=== PATIENT | male | born 1980 | race Caucasian/White ===

== ENCOUNTER 2023-01-11 18:56 | Emergency (ER) | payer BC, SELFPAY ==
[2023-01-11 19:00] VITALS: BP 145/87; PULSE 92; RESP 18; TEMP 36.9; O2SAT 96; BMI 36.5
--- NOTE | 2023-01-11 19:06 | ED.WOUNDLAC ---
HPI - Wound/Laceration General Time Seen by Provider: 19:06 Date Seen: 01/11/23 Chief Complaint: Laceration/Wound Stated Complaint: Lac on left hand Time Seen by Provider: 01/11/23 18:58 Source: patient and RN notes reviewed Mode of arrival: ambulatory Limitations: no limitations History of Present Illness HPI narrative: Patient is a 42-year-old male that sustained a puncture wound in his left thenar eminence. He was using a tool to thread a plug into a tire and did accidentally went through his thenar eminence. He was not even aware that it had fully punctured. He only noted that when he withdrew it and saw an entrance and exit portal. He did clean it with water and peroxide. There is some discrepancy with his tetanus. He has a picture on his clinic chart that was sent by his showing his last tetanus was 09/07/2008. On the [place] immunization website they do have 08/02/2017. He does not remember his last tetanus. Given that this was a puncture wound, his last tetanus was at least 5 years, we have discussed and decided to update his tetanus. There is minimal risk in doing this. He denies any numbness tingling. He is leaving for the weekend and thus decided to have this evaluated. Related Data Home Medications Medication Instructions Recorded Confirmed No Known Home Medications 02/15/22 02/15/22 Allergies Allergy/AdvReac Type Severity Reaction Status Date / Time cephalexin Allergy Unknown Verified 01/11/23 19:00 Sulfa (Sulfonamide Allergy Unknown Verified 01/11/23 19:00 Antibiotics) Review of Systems Narrative: As per HPI PFSH PFSH Social History Smoking Status: Former smoker Exam Const: Vital Signs, click to edit/add: Vital Signs - 24 hr 01/11/23 19:00 Temperature 98.4 F Pulse Rate [Right Pulse Oximeter] 92 Respiratory Rate 18 Blood Pressure [Ri ght Upper Arm] 145/87 H Pulse Oximetry 96 Oxygen Delivery Me thod Room Air Documenting provider has reviewed patient's vital signs: yes Other: Patient is a 42-year-old male ambulatory in the ED of his own accord. On inspection of his thenar eminence, you can see the entrance along the lateral thenar eminence and a smaller exit medially. It is in the fleshy part of the thenar eminence. He has full range of motion of the thumb, no loss of sensation, no loss of strength in any ranges of motion of the thumb. There is no active bleeding, no significant swelling. The wounds of the entrance and exit are already ceiling over and forming clots/scabs. Course Course Hospital Course: Reviewed with patient that this tract is already ceiling and he did note that it did bleed. We did discuss the possibility of infection as a complication of this wound. Would be extremely difficult to adequately irrigate this and potential for actually placing bacteria into the soft tissues. Will have him watch the wound closely. I will send a prescription for doxycycline 100 mg p.o. b.i.d. x7 days to be used if he should develop infection. We will update his tetanus. Vital Signs Vital signs: Initial Vital Signs Temperature 98.4 F 01/11/23 19:00 Temperature Source Temporal Artery Scan 01/11/23 19:00 Pulse Rate 92 01/11/23 19:00 Pulse Rhythm Regular 01/11/23 19:00 Pulse Strength 3+ Normal 01/11/23 19:00 Respiratory Rate 18 01/11/23 19:00 Blood Pressure 145/87 H 01/11/23 19:00 Blood Pressure Mean 106 H 01/11/23 19:00 Blood Pressure Position Sitting 01/11/23 19:00 Pulse Oximetry 96 01/11/23 19:00 Oxygen Delivery Method Room Air 01/11/23 19:00 Vital Signs Temperature 98.4 F 01/11/23 19:00 Pulse Rate 92 01/11/23 19:00 Respiratory Rate 18 01/11/23 19:00 Blood Pressure 145/87 H 01/11/23 19:00 Pulse Oximetry 96 01/11/23 19:00 Oxygen Delivery Method Room Air 01/11/23 19:00 Temperature 98.4 F 01/11/23 19:00 Pulse Rate 92 01/11/23 19:00 Respiratory Rate 18 01/11/23 19:00 Blood Pressure 145/87 H 01/11/23 19:00 Pulse Oximetry 96 01/11/23 19:00 Oxygen Delivery Method Room Air 01/11/23 19:00 Discharge Plan Discharge Clinical Impression: Puncture wound Patient Disposition: Home, Self-Care Condition: Stable Instructions: Puncture Wound (ED) Additional Instructions: Your tetanus was updated with a Tdap today. I a.m. sending a prescription for antibiotics to be started should you notice increasing swelling, redness, pain or fevers associated with these symptoms. If there is concern for infection, do recommend starting antibiotic as well as having the wound evaluated again. Your fine to use Tylenol and/or ibuprofen as needed for pain control. Would recommend ice and elevation tonight and potentially tomorrow to help decrease pain and swelling. Keep the wound openings covered to keep them clean and dry until this is completely healed. Activity Level: Activity as Tolerated Prescriptions: No Action No Known Home Medications Follow Up/Referrals: Provider,Not a Local [Primary Care Provider] - Stand Alone Forms: [employer] Info Instructions
[2023-01-11] MEDS: TETANUS/DIPHTH/PERTUSSIS 0.5 ML SYRINGE IM (19:24)
--- NOTE | 2023-01-11 19:35 | PC.NURSE ---
wound washed with soap and water, bandaged applied, DC instruction gone over with patient and no further questions.
== END 2023-01-11 19:36 | disposition home or self-care (01) ==
PROVIDERS: Emergency Provider Family Medicine
DX: S61.432A Puncture wound without foreign body of left hand, initial encounter (principal)
CPT/HCPCS: 90471; 90715; 99282; 99283; 99284

== ENCOUNTER 2025-02-05 10:52 | Emergency (ER) | payer BC, SELFPAY ==
--- OUTSIDE RECORDS SUMMARY | 2025-02-05 10:53 | XMS_ITS | Clinical Summary ---
Author Organization [employer] [facility] Address [address] [place] [address] Care Team Providers Care Documentation Improvement Specialist Name Role Phone Isidro Camejo MD Primary Care Provider [phone] Allergies Active Allergy Reactions Criticality Noted Date Comments Cephalexin Rash Low 04/01/2009 on both arms, was taking other meds at the time and continued to take medication without worsening of rash. Sulfa (Sulfonamide Antibiotics) *Unknown - Childhood Rxn 09/07/2008 Medications mometasone (Nasonex) (50 mcg each actuation) nasal sprayIndication s:Seasonal allergies Inhale 1 [place] to both nostrils once daily. As needed for allergy symptoms. 17 g 4 2 Active fexofenadine (NAYAN) 180 mg tabletIndicatio ns:Seasonal allergies Take 180 mg by mouth once daily with a meal. As needed daily for allergies in Summer/fall. 90 tablet. 2 2 Active amitriptyline (ELAVIL) 25 mg tabletIndicatio ns:Temporal headache Take 1 Tablet (25 mg) by mouth at bedtime. 90 Tablet 3 4 Active desoximetasone (TOPICORT) 0.25 % ointmentIndicat ions:Other eczema APPLY TOPICALLY TO AFFECTED AREA(S) TWICE DAILY only as needed. 30 g 1 4 Active Active Problems Problem Noted Date Diagnosed Date Alopecia 11/29/2024 Temporal headache 08/08/2022 Overview (06/18/2024): Started June 2022. July 2022: started on imitrex. October 2022: amitriptyline 25mg. December 2023: did increase the amitriptyline from 25-50mg. May 2024: decreased amitriptyline from 50mg down to 25mg per Patient MyChart Message request, due to tired symptoms and weight gain. 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 Neg CT Angiogram. Dermatitis of foot 10/06/2013 Overview (10/06/2013): Saw 2010. on steroid cream. Obesity 11/18/2009 Resolved Problems Problem Noted Date Diagnosed Date Resolved Date Acute anterior uveitis-bilateral 11/21/2009 11/10/2018 Encounters Date Type Department Care Team Description 02/04/2025 8:45 AM CDT Office Visit [facility] [address] [place] [address] Kerry Suazo MD Heart Problem (Patient states he has been having what feels like heart burn since Wednesday 01/31. Patient states it has gotten a little bit better this morning.) 02/04/2025 Travel 12/11/2024 9:15 AM CDT Orders Only [facility] [address] [place] [address] Lab, [facility] 12/11/2024 Travel 11/27/2024 7:50 AM CDT Office Visit [facility] [address] [place] [address] Isidro Camejo MD Concerns (2 bare spots on back of head and 1 bare spot in leal) 11/27/2024 Travel 11/25/2024 1:15 PM CDT Orders Only [facility] [address] [facility] [place] [address] Lab, [place] [facility] 11/25/2024 Travel from Last 3 Months Immunizations Immunization Administration Dates Next Due AMB Influenza, IIV3 (Age >=3 years)(Flu Clinic Only) 05/04/2010 DTP 09/05/1987, 5,02/15/1983,1982,1982 HIB PRP-T (ActHIB,Hiberix) 08/28/1985 Hepatitis B (Peds) 04/08/1995,10/30/1994, 995 Influenza A (H1N1), Inactiva macie (Age >=3 Years) 06/05/2017 Influenza, IIV4 05/29/2020,05/18/2014 MMR 09/27/1994,11/21/1983 Oral Polio Vaccine 09/05/1987, 5,1982,1982 Td (Age >=7 Years) 01/16/1995 Td, Preservative Free (age > = 7 Years) 08/02/2017 Tdap 01/11/2023,09/07/2008,03/04/2006 Tuberculin (PPD) 11/21/2009 Family History Medical History Relation Name Comments Good Health Brother Good Health Father Cancer Maternal Grandfather skin Diabetes Maternal Grandfather Cancer Maternal Grandmother skin Good Health Mother Relation Name Status Comments Brother Father Maternal Grandfather Maternal Grandmother Mother Paternal Grandfather (Age 72) CA D, colon cancer Paternal Grandmother (Age 94) CV A Social History Tobacco Use Types Packs/Day Years Used Date Smoking Tobacco: Former Cigarettes 1 5 0 01/02/2004 - 01/01/2009 Passive Smoke Exposure: Never Smokeless Tobacco: Never Tobacco Cessation:Counseling Given: Yes Comments:1 pack per week Alcohol Use Standard Drinks/Week Comments Yes 0 (1 standard drink = 0.6 oz pur e alcohol) 2020 : rarely PHQ-2 Answer Date Recorded PHQ-2 TOTAL SCORE 0 06/18/2024 Social Connections Answer Date Recorded Do you often feel lonely or isolated from those around you? 0 02/04/2025 Financial Resource Strain Answer Date R ecorded Difficulty of Paying Living Expenses 3 02/04/2025 Difficulty of Paying Living Expenses Not on file 02/04/2025 Food Insecurity Answer Date Recorded Do you worry your food will run out before you are able to buy more? 1 02/04/2025 Transportation Needs Answer Date Record ed Does lack of transportation keep you from medica l appointments? 1 02/04/2025 Does lack of transportation keep you from work, meetings or getting things that you need? 1 02/04/2025 Housing Stability Answer Date Recorded What is your housing situation today? 1 02/04/2025 Utilities Answer Date Recorded Do you have trouble paying f or utilities (for example, heat, electricity, water, phone)? 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 Not on file Not on file Not on file Obstetrics History Last Filed Vital Signs Vital Sign Reading Time Taken Comments Blood Pressure 123/84 02/04/2025 8:45 AM CDT Pulse 76 02/04/2025 8:45 AM CDT Temperature 37.3 C (99.1 F) 09/30/2017 8:04 AM CDT Respiratory Rate 16 01/14/2014 8:20 AM CDT Oxygen Saturation 97% 02/04/2025 8:45 AM CDT Inhaled Oxygen Concentration - - Weight 144.2 kg (318 lb) 02/04/2025 8:45 AM CDT Height 192.8 cm (6' 3.91) 11/27/2024 7:53 AM CD T Body Mass Index 38.8 11/27/2024 7:53 AM CDT Plan of Treatment Upcoming Encounters Date Type Department Care Team (Late st Contact Info) Description 02/08/2025 1:00 PM CDT Ancillary Procedure [facility] [address] [facility] [address] [place] [address] 02/15/2025 8:25 AM CDT Office Visit [facility] [address] [facility] [address] [place] [address] [place] [address] [place] [address] Health Maintenance Due Date Last Done Comments COVID-19 vaccine series ( season) 2024 09/26/2020 Influenza Vaccine (#1) 2025 , 05/18/2014, 05/04/2010 Depression screening for age 12+ 06/18/2025 06/18/2024 BMI (ht and wt on same day) for age 18+ 11/27/2025 11/27/2024, 06/18/2024, 09/16/2023, Additional history exists Lipids for age 35-44 10/01/2028 10/02/2023, 10/16/2022, 10/06/2021, Additional history exists Tetanus booster 01/11/2033 01/11/2023, 07/15, 09/07/2008, Additional history exists Hepatitis B series for 19+ Completed 04/08, 10/30/1994, 09/27/1994 HIV for age 15-65 Completed 10/22/2022 Hepatitis C screening for age 18-79 Completed 10/22/2022 Pneumococcal series for age 6-49 Aged Out No longer eligible based on patient's age to complete this topic Procedures Procedure Name Priority Date/Time Associated Diagnosis Comments TESTOSTERONE BIOAVAILABLE & FREE Routine 12/11/2024 9:18 AM CDT Alopecia Low testosterone in male TSH Routine 11/25/2024 1:15 PM CDT Alopecia CBC WITH AUTO DIFFERENTIAL Routine 11/25/2024 1:15 PM CDT Alopecia T4,FREE Routine 11/25/2024 1:15 PM CDT Alopecia TESTOSTERONE,TOTAL Routine 11/25/2024 1: 15 PM CDT Alopecia LIPID PANEL W REFLEX MEASURED LDL Routine 10/02/2023 7:19 AM CDT Hypertriglyceridemia Screening cholesterol level LC HIV-1/O/2, 4TH GENERATION Routine 10/22/2022 10:02 AM CDT Screening for HIV (human immunodeficiency virus) HCV RNA QUANT Routine 10/22/2022 10:02 AM CDT Encounter for hepatitis C screening test for low risk patient from Last 3 Months or Most Recently Relevant to Health Maintenance Results * (ABNORMAL) TESTOSTERONE BIOAVAILABLE & FREE (12/11/2024 9:18 AM CDT) ALBUMIN 4.6 3.6 - 5.1 g/dL [facility] SEX HORMONE BINDING GLOBULIN 14 10 - 50 nmol/L [facility] TESTOSTERONE, FREE 53.8 46.0 - 224.0 pg/mL [facility] TESTOSTERONE,BIOA VAILABLE 113.0 110.0 - 575.0 ng/dL [facility] TESTOSTERONE, TOTAL, MS 240(L) 250 - 1,100 ng/dL [facility] Comment: Men with clinically significant hypogonadal symptoms and testosterone values repeatedly in the range of the 200-300 ng/dL or less, may benefit from testosterone treatment after adequate risk and benefits counseling. For additional information, please refer to https://education.[employer]faq/KEO442 (This link is being provided for informational/educational purposes only.) (Note) This test was developed and its analytical performance characteristics have been determined by [employer]. It has not been cleared or approved by the FDA. This assay has been validated pursuant to the CLIA regulations and is used for clinical purposes. [facility] [address] [place] [address],[address] [place] [address] Gene Fischer MD, PhD Blood BLOOD SPECIMEN / Unknown 12/11/2024 9:18 AM CDT 12/11/2024 9:18 AM CDT us Isidro Camejo MD SEND OUTS Final Res ult [facility] [address] [place] [phone], [facility] [address] [place] [address], [address] [place] [address] * TSH (11/25/2024 1:15 PM CDT) TSH 1.67 0.40 - 4.50 mIU/L [facility] Blood BLOOD SPECIMEN / Unknown 11/25/2024 1:15 PM CDT 11/25/2024 1:15 PM CDT Isidro Camejo MD CHEMISTRY Final Res ult [employer] [facility] [address] [place] [address], [facility] [address] [place] [address] * CBC AND DIFFERENTIAL (11/25/2024 1:15 PM CDT) Pathologist [facility] WHITE BLOOD CELL COUNT 9.4 3.8 - 10.8 Thousand/u L [facility] RED BLOOD CELL COUNT 5.10 4.20 - 5.80 Million/uL [facility] HEMOGLOBIN 15.2 13.2 - 17.1 g/dL [facility] HEMATOCRIT 46.3 38.5 - 50.0 % [facility] MCV 90.8 80.0 - 100.0 fL [facility] MCH 29.8 27.0 - 33.0 pg [facility] MCHC 32.8 32.0 - 36.0 g/dL [facility] Comment: For adults, a slight decrease in the calculated MCHC value (in the range of 30 to 32 g/dL) is most likely not clinically significant; however, it should be interpreted with caution in correlation with other red cell parameters and the patient's clinical condition. RDW 12.7 11.0 - 15.0 % [facility] PLATELET COUNT 300 140 - 400 Thousand/u L [facility] MPV 9.6 7.5 - 12.5 fL [facility] ABSOLUTE NEUTROPHILS 6,533 1,500 - 7,800 cells/uL [facility] ABSOLUTE LYMPHOCYTES 1,974 850 - 3,900 cells/uL [facility] ABSOLUTE MONOCYTES 639 200 - 950 cells/uL [facility] ABSOLUTE EOSINOPHILS 197 15 - 500 cells/uL [facility] ABSOLUTE BASOPHILS 56 0 - 200 cells/uL [facility] NEUTROPHILS 69.5 % [facility] LYMPHOCYTES 21.0 % [facility] MONOCYTES 6.8 % [facility] EOSINOPHILS 2.1 % [facility] BASOPHILS 0.6 % [facility] Blood BLOOD SPECIMEN / Unknown 11/25/2024 1:15 PM CDT 11/25/2024 1:15 PM CDT Isidro Camejo MD HEMATOLOGY Final Res ult Performing Organization Address City/[facility]/ZIP Co de Phone Number [facility] [employer] ([id number] [facility] [address] [place] [address], [place] [phone] [facility] [address] [place] [address] * T4,FREE (11/25/2024 1:15 PM CDT) T4, FREE 0.9 0.8 - 1.8 ng/dL [facility] Blood BLOOD SPECIMEN / Unknown 11/25/2024 1:15 PM CDT 11/25/2024 1:15 PM CDT us Isidro Camejo MD CHEMISTRY Final Res ult Performing Organization Address [facility]/ZIP Co de Phone Number [employer] [facility] [address] [place] [phone], [place] [phone] [facility] [address] [place] [address] * (ABNORMAL) TESTOSTERONE,TOTAL (11/25/2024 1:15 PM CDT) TESTOSTERONE, TOTAL, MS 232(L) 250 - 1,100 ng/dL [facility] Comment: Men with clinically significant hypogonadal symptoms and testosterone values repeatedly in the range of the 200-300 ng/dL or less, may benefit from testosterone treatment after adequate risk and benefits counseling. For additional information, please refer to https://education.[employer]/faq/TotalTestosteroneLCMSMS (This link is being provided for informational/educational purposes only.) (Note) This test was developed and its analytical performance characteristics have been determined by [employer]. It has not been cleared or approved by the FDA. This assay has been validated pursuant to the CLIA regulations and is used for clinical purposes. [facility] [address] [place] [address],[address] [place] [address] Gene Fischer MD, PhD Blood BLOOD SPECIMEN / Unknown 11/25/2024 1:15 PM CDT 11/25/2024 1:15 PM CDT Isidro Camejo MD CHEMISTRY Final Res ult [facility] [address] [place] [phone], [facility] [address] [place] [address], [address] [place] [phone] * (ABNORMAL) LIPID PANEL W REFLEX MEASURED LDL (10/02/2023 7:19 AM CDT) CHOLESTEROL,TOTAL 164 100 - 199 mg/dL 10/02/2023 2:18 PM CDT [facility] [employer] [facility] Comment: Cholesterol, Total Reference Ranges Desirable <200 mg/dL Borderline 200-239 mg/dL High >=240 mg/dL TRIGLYCERIDES 193(H) <150 mg/dL 10/02/2023 2:18 PM CDT [facility] HDL CHOLESTEROL 31(L) >40 mg/dL 2:[address] [facility] NON-HDL CHOLESTEROL 133 <145 mg/dl 10/02/2023 2:[address] [facility] CHOL/HDL RATIO 5.29(H) <4.50 10/02/2023 2:18 PM CDT [facility] LDL CHOLESTEROL 94 <=130 mg/dL 10/02/2023 2:18 PM CDT [facility] VLDL CHOLESTEROL 39(H) <=30 mg/dL 10/02/2023 2:18 PM CDT [facility] TR[facility] LABORATORY PROVIDER ORDERED STATUS FASTING 10/02/2023 2:18 PM CDT [facility] Blood BLOOD SPECIMEN / Unknown Venipuncture / Unknown 10/02/2023 7:19 AM CDT 10/02/2023 7:19 AM CDT Isidro Camejo MD CHEMISTRY Final Res ult [facility] [address] [place] [address], [place] * LC HIV-1/O/2, 4TH GENERATION (10/22/2022 10:02 AM CDT) Pathologist [facility] HIV Scr 4th Gen Non Reactive Non Reactive 10/24/2022 10:07 PM CDT [facility] Comment: HIV Negative HIV-1/HIV-2 antibodies and HIV-1 p24 antigen were NOT detected. There is no laboratory evidence of HIV infection. Blood BLOOD SPECIMEN / Unknown Venipuncture / Unknown 10/22/2022 10:02 AM CDT 10/22/2022 10:10 AM CDT Narrative [facility] - 10/24/2022 10:07 PM CDT Performed at: [address] [place] [id number] Fall Internship: Baljeet Disla MD, Phone: [phone] Isidro Camejo MD LABORATORY Final Res ult [facility] ([facility]) [address] [place] [address], [place] * HCV RNA QUANT (10/22/2022 10:02 AM CDT) HCV RNA RT-PCR HCV RNA not detected HCV RNA not detected IU/mL 10/26/2022 1:42 PM CDT [facility] [employer] LABORAT[facility]- [facility]ORY Blood BLOOD SPECIMEN / Unknown Venipuncture / Unknown 10/22/2022 10:02 AM CDT 10/22/2022 10:10 AM CDT Narrative [facility] - 10/26/2022 1:42 PM CDT Method: Breann HCV Test us Isidro Camejo MD SEND OUTS Final Res ult [facility] [address] [place] [address], from Last 3 Months or Most Recently Relevant to Health Maintenance Insurance [facility] Advance Directives * Full Code (Latest Code Status on File) Date Activated Date Inactivated Comments 01/14/2014 1:08 AM 01/14/2014 1:44 PM Care Teams Documentation Improvement Specialist Relationship Specialty Start Date End Date Isidro Camejo MD [facility] - General 03/10/09
[2025-02-05 11:11] VITALS: BP 152/84; PULSE 80; RESP 20; TEMP 36.6; O2SAT 98; BMI 38.3
--- NOTE | 2025-02-05 11:27 | CRLHL7_ITS ---
For Patients: As a result of the Century Cures Act, medical imaging exams and procedure reports are released immediately into your electronic medical record. You may view this report before your referring provider. If you have questions, please contact your health care provider. INDICATION: Chest pain TECHNIQUE: Chest 1 views. COMPARISON: None. FINDINGS: Cardiovasculature and mediastinum: Heart size is normal. Unremarkable mediastinum. Lungs and pleural spaces: Lungs are clear. Calcified granuloma in the right lower lobe. No pneumothorax or pleural effusion. Bones and soft tissues: No significant findings. IMPRESSION: No acute findings. Dictated by Kyara Ornelas MD @ 02/05/2025 12:25:53 PM (Electronically Signed)
--- NOTE | 2025-02-05 11:28 | ED_ITS ---
HPI - Chest Pain General Chief Complaint: Chest Pain Stated Complaint: Chest pain Time Seen by Provider: 02/05/25 11:17 History of Present Illness HPI narrative: Patient is a 44-year-old gentleman who had chest pain approximately week ago. He has had intermittent pain over the last week that is primarily left-sided no diaphoresis no shortness of breath. Patient was seen in urgent care and had an EKG which was reassuring. The provider told patient to come to the ER if symptoms persist while we wait for his stress test which is in 3 days. Patient has no history of any cardiovascular disease. No family history of heart disease. He is not noticing aggravating or alleviating factors and otherwise been in his usual state of health. EKG done upon arrival showed normal sinus rhythm no acute ST or T-wave changes. Related Data Home Medications ?Medication ?Instructions ?Recorded ?Confirmed No Known Home Medications 02/15/22 08/0 11/03 Allergies Allergy/AdvReac Type Severity Reaction Status Date / Time cephalexin Allergy Unknown Verified 02/05/25 11:10 Sulfa (Sulfonamide Allergy Unknown Verified 02/05/25 11:10 Antibiotics) Review of Systems Status of ROS Reports: 10 or more systems reviewed and unremarkable except as noted in History and below PFSH PFSH Social History Smoking Status: Former smoker Do you use any of these nicotine containing products: None How often do you have a drink containing alcohol: monthly or less AUDIT-C Alcohol total score: 1 Non-prescribed substance use: denies use Exam Narrative Exam Narrative: EXAM GENERAL: Patient appears comfortable and well. EYES: No scleral icterus. ENT: Tympanic membranes and oropharynx normal. THYROID: no thyroid nodules or thyromegaly. LYMPH: No supraclavicular or cervical lymphadenopathy. SKIN: Visible skin seen during exam normal or with benign process only. EXT: No dependent lower extremity pedal edema. HEART: Regular rate and rhythm with no murmurs, rubs, or gallops. LUNGS: Clear to auscultation bilaterally with no crackles or wheezes. ABD: Soft, non tender, non distended. PSYCH: Good eye contact, speech is not pressured. Const Vital Signs, click to edit/add: Vital Signs - 24 hr 02/05/25 11:11 Temperature 97.8 F Pulse Rate [Pulse Oximeter] 80 Respiratory Rate 20 Blood Pressure [Right Upper Arm] 152/84 H Pulse Oximetry 98 Oxygen Delivery Method Room Air Course Course ED Course: Patient seen examined. EKG personally reviewed. D-dimer troponin CBC comprehensive metabolic panel portable chest x-ray pending. Vital Signs Vital signs: Initial Vital Signs Temperature 97.8 F 02/05/25 11:11 Temperature Source Temporal Artery Scan 02/05/25 11:11 Pulse Rate 80 02/05/25 11:11 Respiratory Rate 20 02/05/25 11:11 Blood Pressure 152/84 H 02/05/25 11:11 Blood Pressure Mean 106 H 02/05/25 11:11 Pulse Oximetry 98 02/05/25 11:11 Oxygen Delivery Method Room Air 02/05/25 11:11 Vital Signs Temperature 97.8 F 02/05/25 11:11 Pulse Rate 80 02/05/25 11:11 Respiratory Rate 20 02/05/25 11:11 Blood Pressure 152/84 H 02/05/25 11:11 Pulse Oximetry 98 02/05/25 11:11 Oxygen Delivery Method Room Air 02/05/25 11:11 Temperature 97.8 F 02/05/25 11:11 Pulse Rate 80 02/05/25 11:11 Respiratory Rate 20 02/05/25 11:11 Blood Pressure 152/84 H 02/05/25 11:11 Pulse Oximetry 98 02/05/25 11:11 Oxygen Delivery Method Room Air 02/05/25 11:11 MDM - Chest Pain MDM Narrative Medical decision making narrative: Patient presents with intermittent chest pain which is been evaluated in the clinic with a negative EKG. Patient has no real increase in his symptoms the last several days. EKG done upon arrival today shows normal sinus rhythm without acute ST or T-wave changes. Patient's chest x-ray is unremarkable D- dimer troponin CBC comprehensive metabolic panel normal. This time I did offer reassurance and he can return if symptoms worsen. He does have a stress test scheduled in 3 days. Lab Data Labs: Lab Results 02/05/25 Range/Units 11:45 WBC 8.94 (4.50-11.00) K/uL RBC 5.32 (4.30-5.90) m/uL Hgb 15.6 (13.5-17.5) gm/dL Hct 46.3 (37.0-53.0) % MCV 87 (80-100) fL MCH 29 (26-34) pg MCHC 34 (32-36) gm/dL RDW Coeff of Laura 11.9 (11.5-15.5) % Plt Count 281 (140-440) K/uL Neut % (Auto) 68.1 (42.0-72.0) % Lymph % (Auto) 19.8 L (20-44) % Dubois % (Auto) 10.0 (0.0-11.0) % Eos % (Auto) 1.3 (0.0-7.0) % Baso % (Auto) 0.6 (0.0-3.0) % Neut # (Auto) 6.09 (1.7-7.0) K/uL Lymph # (Auto) 1.80 (0.90-2.90) K/uL Dubois # (Auto) 0.90 (0.00-0.90) K/UL Eos # (Auto) 0.12 (0.00-0.50) K/uL Baso # (Auto) 0.05 (0.00-0.30) K/uL Abs Immat Gran (auto) 0.02 (0.00-0.30) K/uL Imm/Tot Granulo (auto) 0.2 % D-Dimer Quant (PE/DVT) < 0.27 (0.00-0.50) ug/ml Sodium 137 (135-149) mmol/L Potassium 4.0 (3.6-5.1) mmol/L Chloride 105 (96-114) mmol/L Carbon Dioxide 24 (20-32) mmol/L Anion Gap 8 (7-15) mEq/L BUN 23 (5-24) mg/dL Creatinine 0.8 (0.5-1.5) mg/dL Estimated Creat Clear 147.68 Estimated GFR 113 ml/min Glucose 87 (60-115) mg/dL Calcium 9.5 (8.4-10.6) mg/dL Total Bilirubin 0.5 (0.1-1.5) mg/dL AST 41 H (12-35) U/L ALT 49 (4-50) U/L Alkaline Phosphatase 77 (40-150) U/L Troponin I < 0.01 (0.01-0.04) ng/mL Total Protein 7.8 (6.0-8.3) g/dL Albumin 4.7 (3.3-5.0) g/dL Discharge Plan Discharge Clinical Impression: Chest pain Patient Disposition: Home, Self-Care Condition: Stable Instructions: Chest Pain (ED) Additional Instructions: Tylenol Motrin Rest Follow-up with your stress test on Saturday. Activity Level: No Restrictions Discharge Diet: Regular Prescriptions: No Action No Known Home Medications Follow Up/Referrals: Provider,Not a Local [Non-Staff, Family Practice] Stand Alone Forms: [facility] Info Instructions
--- OUTSIDE RECORDS SUMMARY | 2025-02-05 11:31 | XMS_ITS | Clinical Summary ---
Author Organization [facility] Address [address] , [address] [place] [address] Phone Care Team Providers Care Brand Protection Manager Name Role Phone Sissy Gonzalez Conditions or Problems Problem Name Problem Code Onset Date Status Entry Date Provider Comment Standard Description Annotate Neck pain 24699802 (SNOMED CT) Active Zeke Osborn MD Neck pain Tension headache [id number] (SNOMED CT) Active Zeke Osborn MD Tension-type headache Medications Medication Instructions Start Date Stop Date Generic Name [facility] Provider AMITRIPTYLINE HCL 10 MG TABS week 1-2: take 2 tab (20 mg) by mouth at bedtime. week 3-4: take 1 tab (10 mg) by mouth at bedtime. week 5-6: take 1 tab (10 mg) every other day at bedtime, then stop the medication. amitriptyline [id number] Paige RASMUSSEN-C NAPROXEN 500 MG TABS naproxen [id number] Paige RASMUSSEN-C AMITRIPTYLINE HCL 50 MG TABS 50 mg at bedtime amitriptyline [id number] Paige Olivo PA-C AMITRIPTYLINE HCL 25 MG TABS amitriptyline [id number] Paige RASMUSSEN-C AMITRIPTYLINE HCL 10 MG TABS week 1-2: take 2 tab (20 mg) by mouth at bedtime. week 3-4: take 1 tab (10 mg) by mouth at bedtime. week 5-6: take 1 tab (10 mg) every other day at bedtime, then stop the medication. amitriptyline [id number] Paige Olivo PA-C AMITRIPTYLINE HCL 25 MG TABS amitriptyline [id number] Zeke Osborn MD Medications Administered No information available. Allergies, Adverse Reactions, Alerts Allergy Name Reaction Description Start Date Severity Statu s Provider SULFA (SULFONAMIDE ANTIBIOTICS) *Unknown - Childhood Rxn Mild Active [facility] CEPHALEXIN Rash Moderate Active [facility] ecwalter Results Date Name Value Unit Range Flag Description Office Visit: Office Visit T emporal headache MRI 10/25/22 Records in [facility] SMOK STATUS former smoker Tob acco smoking status Internal Other: Authorizatio n - OBS [email or web address] Yes Authoriza tion: Release of Information - Authorize [facility] - Payment and Healthcare Operations ROIAUTHOTHER Yes Authoriz ation: Release of Information - Authorize Others/Insurance - Payment and Healthcare Operations HIECONSENT Yes Consent To Release information to the Health Information Exchange (HIE) [email or web address] Yes Authorizat ion: Authorization for [facility] to leave messages, voicemail, send text messages, send emails AUTHRELHCARE Yes Authoriz ation: Release/Retrieval of Information to/from Healthcare Facilities, Pharmacy Benefit Payers and Providers AUTHPRIVPRAC Yes Authoriz ation: Notice of privacy practices AUTHBENEFIT Yes Authoriza tion: Assignment of Benefits and Payment Agreement Internal Other: Verbal Autho rization/Emergency Contact - OBS VERBAL_EMER DONE Verbal au thorization and emergency contact Office Visit: Office Visit f ax MEDS REVIEW Done Documenta tion of current medications (procedure) Plan of Care Type Date Detail Pending order Follow up Pending order Follow up Pending order Physical Therapy Pending order Physical Therapy Pending order Patient Instruct ions Pending order Physical Therapy Pending order Follow up with N eurologist or [facility] Pending order Follow up with N eurologist or [facility] Pending order Follow up [facility] Pending order Patient Instruct ions Pending order Patient Instruct ions Procedures Code Procedure Name Date Entry Date ORDERS Patient Instructions ORDERS Physical Therapy ORDERS Follow up [facility] ORDERS Patient Instructions [facility] [email or web address] Documentation of current medicatio ns ORDERS Patient Instructions Vital Signs No information available. Immunizations No information available. Advance Directives No information available.
[2025-02-05 12:00] LABS: Hematocrit 46.3 % (37.0-53.0); Hemoglobin* 15.6 gm/dL (13.5-17.5); Immature Granulocytes Abs Auto 0.02 K/uL (0.00-0.30); Immature Granulocytes Pct Auto 0.2 %; Mean Corpuscular HGB Conc 34 gm/dL (32-36); Mean Corpuscular Hemoglobin 29 pg (26-34); Mean Corpuscular Volume 87 fL (80-100); RDW Coefficient of Variation % 11.9 % (11.5-15.5); Red Blood Count 5.32 m/uL (4.30-5.90); White Blood Count* 8.94 K/uL (4.50-11.00)
[2025-02-05 12:09] LABS: Albumin* 4.7 g/dL (3.3-5.0); Chloride* 105 mmol/L (96-114); Potassium* 4.0 mmol/L (3.6-5.1); Sodium* 137 mmol/L (135-149)
[2025-02-05 12:11] LABS: Alanine Aminotransferase* 49 U/L (4-50); Anion Gap 8 mEq/L (7-15); Aspartate Amino Transferase* 41 U/L (12-35); Blood Urea Nitrogen* 23 mg/dL (5-24); Carbon Dioxide* 24 mmol/L (20-32); Creatinine* 0.8 mg/dL (0.5-1.5); Est. Creatinine Clearance* 147.68; Estimated Glomerular Filt Rate 113 ml/min
[2025-02-05 12:12] LABS: Alkaline Phosphatase* 77 U/L (40-150); Bilirubin Total* 0.5 mg/dL (0.1-1.5); Calcium* 9.5 mg/dL (8.4-10.6); Glucose* 87 mg/dL (60-115); Total Protein* 7.8 g/dL (6.0-8.3)
[2025-02-05 12:24] LABS: Lymphocytes Absolute Auto 1.80 K/uL (0.90-2.90); Slide Review Reflex No
[2025-02-05 12:31] LABS: D Dimer Quantitative* < 0.27 ug/ml (0.00-0.50)
[2025-02-05 12:40] VITALS: BP 136/83; PULSE 71; RESP 16; O2SAT 97
== END 2025-02-05 12:54 | disposition home or self-care (01) ==
PROVIDERS: Emergency Provider Internal Medicine; PCP Family Medicine
DX: R07.9 Chest pain, unspecified (principal)
CPT/HCPCS: 36415; 71045; 80053; 84484; 85025; 85379; 99283; 99284